=== PATIENT | female | born 1935 | race Asian ===

== ENCOUNTER 2020-03-18 10:26 | Outpatient (CLI) | payer BC, MEDICARE | END 2020-03-18 10:27 | disposition critical access hospital (66) | LOC: EMS 10:26 | PROVIDERS: ATTEND Surgery | DX: R40.20 Unspecified coma (principal); K92.0 Hematemesis | CPT/HCPCS: A0425; A0433 ==

== ENCOUNTER 2020-03-18 10:34 | Inpatient (IN) | payer MEDICARE, BC ==
[2020-03-18] MEDS ORDERED: SODIUM CHLORIDE 0.9% 1,000 ML IV STA (10:39)
--- NOTE | 2020-03-18 10:48 | ED Physician Documentation ---
History of Present Illness - Stated complaint Stated Complaint: UNRESPONSIVE - History obtained from History obtained from: EMS - Additonal information Additional information: 84-year-old presents status post found down by son unresponsive with bloody vomitus. He last saw her normal 3 days ago. Patient has history of hypertension but otherwise has been healthy. She has been acting normally prior to his last seeing her. Further history limited by patient acuity. Patient was intubated in the field after receiving CPR by her son. On arrival EMS had a tachycardic pulse with hypotension blood pressure that improved with fluids. Review of Systems Unable to obtain: Intubated PD PAST MEDICAL HISTORY - Present Medications Home Medications: Ambulatory Orders Medication Instructions Recorded Confirmed Home Medications Unobtainable 03/18/20 03/18/20 [HOME MEDICATIONS UNOBTAINABLE] - Allergies Allergies/Adverse Reactions: Allergies Allergy/AdvReac Type Severity Reaction Status Date / Time Unable to Assess Allergy Verified 03/18/20 10:54 PD ED PE NORMAL - Vitals Vital signs reviewed: Yes - General General: Other (Intubated, sedated) - HEENT HEENT: Other (Eyes fixed and dilated. Bilateral raccoon eyes. Dried blood in the oropharynx) - Neck Neck: Other (No deformity) - Cardiac Cardiac: Other (Tachycardic rate, regular rhythm) - Respiratory Respiratory: Other (Bilateral breath sounds) - Abdomen Abdomen: Non distended - Female Female : Deferred - Rectal Rectal: Deferred - Back Back: Other (No gross deformity) - Derm Derm: Normal color, Other (Positive sebastian sign. Positive raccoon eyes) - Extremities Extremities: No deformity - Neuro Neuro: Other (Intubated, sedated) - Psych Psych: Other (Intubated, sedated) Results - Vitals Vitals: Vital Signs - 24 hr 03/18/20 03/18/20 03/18/20 10:32 10:35 10:40 Temperature 32.4 C L 32.3 C L Heart Rate 94 98 97 Respiratory 16 20 13 Rate Blood Pressure 164/112 H 179/88 H O2 Saturation 100 98 99 03/18/20 03/18/20 03/18/20 10:45 10:50 10:55 Temperature Heart Rate 94 94 93 Respiratory 14 22 19 Rate Blood Pressure 166/99 H 169/99 H 159/95 H O2 Saturation 99 92 87 L 12/03/18/20 03/18/20 11:05 11:10 11:15 Temperature 32 C L Heart Rate 92 93 105 H Respiratory 14 12 12 Rate Blood Pressure 165/110 H 156/93 H O2 Saturation 100 100 156 H 03/18/20 03/18/20 03/18/20 11:20 11:30 11:45 Temperature Heart Rate 106 H 87 93 Respiratory 12 13 12 Rate Blood Pressure 158/100 H 136/79 H 141/79 H O2 Saturation 100 100 95 03/18/20 03/18/20 03/18/20 12:00 12:15 12:30 Temperature Heart Rate 95 94 93 Respiratory 12 12 12 Rate Blood Pressure 148/92 H 130/83 H 136/89 H O2 Saturation 100 88 L 96 Oxygen O2 Source Mechanical ventilator - EKG (time done) 1038 Rate: Rate (enter#) (86) Rhythm: NSR [place]: Normal Intervals: Normal [place] QRS: Normal Ischemia: Normal ST segments Other comments: Other comments (long qt/qtc 425/509) - Labs Labs: Laboratory Tests 03/18/20 03/18/20 03/18/20 10:42 10:42 10:42 WBC 7.3 RBC 4.66 Hgb 14.0 Hct 42.6 MCV 91.4 MCH 30.0 MCHC 32.9 RDW 13.3 Plt Count 160 MPV 9.8 Neut # (Auto) Not Reportable Lymph # (Auto) Not Reportable [place] # (Auto) Not Reportable Eos # (Auto) Not Reportable Baso # (Auto) Not Reportable Absolute Nucleated RBC Not Reportable Total Counted 100 Band Neuts % (Manual) 23 H Reactive Lymphs % (Man) 2 Abnorm Lymph % (Manual) 0 Metamyelocytes % 2 H Nucleated RBC % Not Reportable Neutrophils # (Manual) 3.9 Lymphocytes # (Manual) 2.3 Monocytes # (Manual) 1.0 Eosinophils # (Manual) 0.0 Basophils # (Manual) 0.0 Differential Comment MANUAL DIFFERENTIAL Manual Slide Review Indicated WBC Morphology NORMAL APPEARANCE Platelet Estimate NORMAL (130-450,000) Platelet Morphology NORMAL APPEARANCE RBC Morph Micro Appear NORMAL APPEARANCE PT 13.9 H INR 1.3 H APTT 27.4 Sodium 139 Potassium 3.7 Chloride 105 Carbon Dioxide 19 L Anion Gap 15.0 H BUN 29 H Creatinine 1.1 H Estimated GFR (MDRD) 47 L Glucose 182 H Lactic Acid Calcium 9.0 Magnesium 2.4 Total Bilirubin 0.5 AST 77 H ALT 32 Alkaline Phosphatase 73 Troponin I High Sens Total Protein 6.6 L Albumin 3.4 Globulin 3.2 Albumin/Globulin Ratio 1.1 Lipase 24 Urine Color Urine Clarity Urine pH Ur Specific [place] Urine Protein Urine Glucose (UA) Urine Ketones Urine Occult Blood Urine Nitrite Urine Bilirubin Urine Urobilinogen Ur Leukocyte Esterase Ur Microscopic Review Urine Culture Comments Nasal Adenovirus (PCR) Nasal B. parapertussis DNA (PCR) Nasal Coronavir 229E PCR Nasal Coronavir HKU1 PCR Nasal Coronavir NL63 PCR Nasal Coronavir OC43 PCR Nasal Enterovir/Rhinovir PCR Nasal Influenza B PCR Nasal Influenza A PCR Nasal Parainfluen 1 PCR Nasal Parainfluen 2 PCR Nasal Parainfluen 3 PCR Nasal Parainfluen 4 PCR Nasal RSV (PCR) Nasal B.pertussis DNA PCR Nasal C.pneumoniae (PCR) Rickie Human Metapneumo PCR Nasal M.pneumoniae (PCR) Nasal SARS-CoV-2 (PCR) Urine Opiates Screen Ur Oxycodone Screen Urine Methadone Screen Ur Propoxyphene Screen Ur Barbiturates Screen Ur Tricyclics Screen Ur Phencyclidine Scrn Ur Amphetamine Screen U Methamphetamines Scrn U Benzodiazepines Scrn Urine Cocaine Screen U Cannabinoids Screen Ethyl Alcohol < 5.0 Blood Type Antibody Screen 03/18/20 03/18/20 03/18/20 10:42 10:45 10:45 WBC RBC Hgb Hct MCV MCH MCHC RDW Plt Count MPV Neut # (Auto) Lymph # (Auto) [place] # (Auto) Eos # (Auto) Baso # (Auto) Absolute Nucleated RBC Total Counted Band Neuts % (Manual) Reactive Lymphs % (Man) Abnorm Lymph % (Manual) Metamyelocytes % Nucleated RBC % Neutrophils # (Manual) Lymphocytes # (Manual) Monocytes # (Manual) Eosinophils # (Manual) Basophils # (Manual) Differential Comment Manual Slide Review WBC Morphology Platelet Estimate Platelet Morphology RBC Morph Micro Appear PT INR APTT Sodium Potassium Chloride Carbon Dioxide Anion Gap BUN Creatinine Estimated GFR (MDRD) Glucose Lactic Acid Calcium Magnesium Total Bilirubin AST ALT Alkaline Phosphatase Troponin I High Sens 1455.6 H* Total Protein Albumin Globulin Albumin/Globulin Ratio Lipase Urine Color YELLOW Urine Clarity CLEAR Urine pH 6.0 Ur Specific [place] 1.025 Urine Protein TRACE Urine Glucose (UA) 500 H Urine Ketones 15 H Urine Occult Blood TRACE-INTA Urine Nitrite NEGATIVE Urine Bilirubin NEGATIVE Urine Urobilinogen 0.2 (NORMAL) Ur Leukocyte Esterase NEGATIVE Ur Microscopic Review NOT INDICATED Urine Culture Comments NOT INDICATED Nasal Adenovirus (PCR) Nasal B. parapertussis DNA (PCR) Nasal Coronavir 229E PCR Nasal Coronavir HKU1 PCR Nasal Coronavir NL63 PCR Nasal Coronavir OC43 PCR Nasal Enterovir/Rhinovir PCR Nasal Influenza B PCR Nasal Influenza A PCR Nasal Parainfluen 1 PCR Nasal Parainfluen 2 PCR Nasal Parainfluen 3 PCR Nasal Parainfluen 4 PCR Nasal RSV (PCR) Nasal B.pertussis DNA PCR Nasal C.pneumoniae (PCR) Rickie Human Metapneumo PCR Nasal M.pneumoniae (PCR) Nasal SARS-CoV-2 (PCR) Urine Opiates Screen NEGATIVE Ur Oxycodone Screen NEGATIVE Urine Methadone Screen NEGATIVE Ur Propoxyphene Screen NEGATIVE Ur Barbiturates Screen NEGATIVE Ur Tricyclics Screen NEGATIVE Ur Phencyclidine Scrn NEGATIVE Ur Amphetamine Screen NEGATIVE U Methamphetamines Scrn NEGATIVE U Benzodiazepines Scrn NEGATIVE Urine Cocaine Screen NEGATIVE U Cannabinoids Screen NEGATIVE Ethyl Alcohol Blood Type A POSITIVE Antibody Screen NEGATIVE 03/18/20 03/18/20 11:03 11:18 WBC RBC Hgb Hct MCV MCH MCHC RDW Plt Count MPV Neut # (Auto) Lymph # (Auto) [place] # (Auto) Eos # (Auto) Baso # (Auto) Absolute Nucleated RBC Total Counted Band Neuts % (Manual) Reactive Lymphs % (Man) Abnorm Lymph % (Manual) Metamyelocytes % Nucleated RBC % Neutrophils # (Manual) Lymphocytes # (Manual) Monocytes # (Manual) Eosinophils # (Manual) Basophils # (Manual) Differential Comment Manual Slide Review WBC Morphology Platelet Estimate Platelet Morphology RBC Morph Micro Appear PT INR APTT Sodium Potassium Chloride Carbon Dioxide Anion Gap BUN Creatinine Estimated GFR (MDRD) Glucose Lactic Acid 5.0 H* Calcium Magnesium Total Bilirubin AST ALT Alkaline Phosphatase Troponin I High Sens Total Protein Albumin Globulin Albumin/Globulin Ratio Lipase Urine Color Urine Clarity Urine pH Ur Specific [place] Urine Protein Urine Glucose (UA) Urine Ketones Urine Occult Blood Urine Nitrite Urine Bilirubin Urine Urobilinogen Ur Leukocyte Esterase Ur Microscopic Review Urine Culture Comments Nasal Adenovirus (PCR) NOT DETECTED Nasal B. parapertussis DNA (PCR) NOT DETECTED Nasal Coronavir 229E PCR NOT DETECTED Nasal Coronavir HKU1 PCR NOT DETECTED Nasal Coronavir NL63 PCR NOT DETECTED Nasal Coronavir OC43 PCR NOT DETECTED Nasal Enterovir/Rhinovir PCR NOT DETECTED Nasal Influenza B PCR NOT DETECTED Nasal Influenza A PCR NOT DETECTED Nasal Parainfluen 1 PCR NOT DETECTED Nasal Parainfluen 2 PCR NOT DETECTED Nasal Parainfluen 3 PCR NOT DETECTED Nasal Parainfluen 4 PCR NOT DETECTED Nasal RSV (PCR) NOT DETECTED Nasal B.pertussis DNA PCR NOT DETECTED Nasal C.pneumoniae (PCR) NOT DETECTED Rickie Human Metapneumo PCR NOT DETECTED Nasal M.pneumoniae (PCR) NOT DETECTED Nasal SARS-CoV-2 (PCR) NOT DETECTED Urine Opiates Screen Ur Oxycodone Screen Urine Methadone Screen Ur Propoxyphene Screen Ur Barbiturates Screen Ur Tricyclics Screen Ur Phencyclidine Scrn Ur Amphetamine Screen U Methamphetamines Scrn U Benzodiazepines Scrn Urine Cocaine Screen U Cannabinoids Screen Ethyl Alcohol Blood Type Antibody Screen PD MEDICAL DECISION MAKING - ED course ED course: patient unresponsive on arrival with report by ems that she had no meaningful activity prior to intubation. eyes fixed and dilated on initial evaluation. no gag reflex. 11:30am d/w radiologist Dr. El - patient is not currently herniating but does have extensive IPH,SAH, SDH, and IVH in 4th ventricles. temp 31 at present. patient under bearhugger. will d/w family re goals of care. 11:45am - d/w son who states she wouldn't want any extraordinary measures, he is agreeable to comfort measures only, stating that she would not wish to prolong her life artificially. dw Dr. Torres, hospitalist who will admit to floor. patient to be extubated pending discussion with family. Departure - Departure Disposition: 66 [facility] DC/Xfer Clinical Impression: Intraparenchymal hematoma of brain, SDH (subdural hematoma), Respiratory failure, IVH (intraventricular hemorrhage), Subarachnoid bleed, Pneumothorax on right, Unresponsiveness Hypothermia Qualifiers: Encounter type: initial encounter Qualified Code(s): T68.XXXA - Hypothermia, initial encounter Discharge Date/Time: 03/18/20 13:07
[2020-03-18 10:59] LABS: MUDS CUTOFF CONCENTRATIONS CUTOFF CONC BELOW:
[2020-03-18 11:00] LABS: BASOPHILS % (AUTO) 0.5 %; EOSINOPHILS % (AUTO) 24.5 %; LYMPHOCYTES % (AUTO) 12.3 %; MEAN CORPUSCULAR HGB CONC 32.9 g/dL (32.0-36.0); MEAN CORPUSCULAR VOLUME 91.4 fL (81.0-99.0); MEAN PLATELET VOLUME 9.8 fL (7.9-10.8); MONOCYTES % (AUTO) 9.9 %; NEUTROPHILS % (AUTO) 51.8 %; PLT - PLATELET COUNT 160 10^3/uL (130-450); RED BLOOD COUNT 4.66 10^6/uL (4.20-5.40); RED CELL DISTRIBUTION WIDTH 13.3 % (12.0-15.0); WHITE BLOOD COUNT 7.3 x10^3/uL (4.8-10.8)
[2020-03-18 11:03] LABS: INR 1.3 (0.8-1.2); PT - PROTHROMBIN TIME 13.9 secs (9.9-12.6)
[2020-03-18 11:05] LABS: BILIRUBIN,URINE NEGATIVE (NEGATIVE); GLUCOSE, URINE (UA) 500 mg/dL (NEGATIVE); KETONES,URINE (UA) 15 mg/dL (NEGATIVE); LEUKOCYTE ESTERASE, URINE NEGATIVE (NEGATIVE); NITRITE,URINE NEGATIVE (NEGATIVE); OCCULT BLOOD,URINE TRACE-INTA (NEGATIVE); PROTEIN,URINE TRACE mg/dL (NEGATIVE); UROBILINOGEN,URINE 0.2 (NORMAL) E.U./dL (NORMAL)
[2020-03-18] MEDS ORDERED: IOVERSOL 320 100 ML VIAL IVP ONE ×2 (11:05→11:37)
[2020-03-18 11:06] LABS: CLARITY,URINE CLEAR (CLEAR)
--- NOTE | 2020-03-18 11:09 | XRAY Report ---
PROCEDURE: Post ET Tube 1V CXR INDICATIONS: et tube placement TECHNIQUE: One view of the chest was acquired. COMPARISON: None FINDINGS: Surgical changes and devices: Endotracheal tube is present approximately 3.5 cm superior to the madelin a. Nasogastric tube is present with distal tip projecting over the gastroesophageal junction.. Lungs and pleura: No pleural effusions or pneumothorax. Lungs are clear. Mediastinum: Mediastinal contours appear normal. Heart size is enlarged. Bones and chest wall: No suspicious bony lesions. Overlying soft tissues appear unremarkable. IMPRESSION: 1. Endotracheal tube as above. 2. Nasogastric tube projecting over the gastroesophageal junction. For advancement is recommended. Reviewed by: Deena Crabtree MD on 03/18/2020 11:07 AM [facility] Approved by: Deena Crabtree MD on 03/18/2020 11:07 AM [facility] Station ID: [id number]
[2020-03-18 11:10] LABS: PARTIAL THROMBOPLASTIN TIME 27.4 secs (24.9-33.3)
[2020-03-18 11:12] LABS: ALBUMIN 3.4 g/dL (3.2-5.5); ALBUMIN/GLOBULIN RATIO 1.1 (1.0-2.2); ALKALINE PHOSPHATASE 73 IU/L (42-121); ALT ALANINE AMINOTRANSFERASE 32 IU/L (10-60); AST ASPARTATE AMINOTRANSFERASE 77 IU/L (10-42); BILIRUBIN,TOTAL 0.5 mg/dL (0.2-1.0); BUN - BLOOD UREA NITROGEN 29 mg/dL (6-20); CARBON DIOXIDE - CO2 19 mmol/L (21-32); CHLORIDE 105 mmol/L (101-111); CREATININE 1.1 mg/dL (0.4-1.0); GLUCOSE 182 mg/dL (70-100); LIPASE 24 U/L (22-51); MAGNESIUM 2.4 mg/dL (1.7-2.8); SODIUM 139 mmol/L (135-145); TOTAL PROTEIN 6.6 g/dL (6.7-8.2)
[2020-03-18 11:16] LABS: COCAINE SCREEN URINE NEGATIVE (NEGATIVE)
[2020-03-18 11:17] LABS: AMPHETAMINE SCREEN,URINE NEGATIVE (NEGATIVE); BENZODIAZEPINES SCREEN, URINE NEGATIVE (NEGATIVE); METHADONE SCREEN, URINE NEGATIVE (NEGATIVE); METHAMPHETAMINES SCREEN, URINE NEGATIVE (NEGATIVE); OPIATE SCREEN, URINE NEGATIVE (NEGATIVE); OXYCODONE SCREEN, URINE NEGATIVE (NEGATIVE); PROPOXYPHENE SCREEN, URINE NEGATIVE (NEGATIVE); TRICYCLIC ANTIDEPRESSANT,URINE NEGATIVE (NEGATIVE)
[2020-03-18 11:28] LABS: ABNORMAL LYMPHS % (MANUAL) 0 %
--- NOTE | 2020-03-18 11:35 | CT Report ---
PROCEDURE: HEAD WO INDICATIONS: Head trauma, coagulopathy TECHNIQUE: Noncontrast 4.5 mm thick angled axial sections acquired from the foramen magnum to the vertex. For r adiation dose reduction, the following was used: automated exposure control, adjustment of mA and/or kV according to patient size. COMPARISON: None. FINDINGS: Image quality: Excellent. There is extensive bifrontal areas of hyperdensity with fluid levels. In addition, bilateral frontal subdural as well as bilateral areas of subarachnoid hemorrhage are identified. Greatest transverse di mension of the subdural fluid measures 6 mm. There is prominent hemorrhage within the lateral and fou rth ventricles. Hemorrhage appears to extend from the fourth ventricle along the posterior aspect of the brainstem to the level of the foramen magnum. There is effacement of the frontal horns of the lat eral ventricle secondary to hemorrhage. Secondary to significant bifrontal hemorrhage, there is limit ed discernment for midline shift. However, there is narrowing of the basal cisterns. Brainstem is unr emarkable. Globes are symmetrical. There are extensive fluid levels within the right maxillary and sphenoid sinu ses. There is suspicion for a superior right orbital fracture, nondisplaced. In addition, nondisplace d fracture through the right sphenoid is noted. Nondisplaced posterior occipital fracture is present. There are scattered areas of fluid within the mastoid air cells, right greater than left. Posterior parieto-occipital hematomas are present. IMPRESSION: 1. Extensive parenchymal, subdural and subarachnoid hemorrhage as above. There is narrowing of the ba huan cisterns and hemorrhage is noted extending inferior to level the fourth ventricle adjacent to the cervical cord extending to the level the foramen magnum. There is narrowing of the basal cisterns. 2. Nondisplaced occipital fracture. In addition, there appears to be a nondisplaced fracture to the r ight sphenoid as well as occipital fracture and questionable right orbital fracture. Given overall ap pearance, areas of skull base and facial fractures cannot be excluded. If these areas are of concern, facial bone series as well as temporal bone CT is recommended for further evaluation. The above findings were discussed with on 03/18/20 at 11:20am. Reviewed by: Deena Crabtree MD on 03/18/2020 11:34 AM PST Approved by: Deena Crabtree MD on 03/18/2020 11:34 AM PST Station ID: [id number]
[2020-03-18 11:41] LABS: BAND NEUTROPHILS % (MANUAL) 23 %; LYMPHOCYTES # (MANUAL) 2.3 10^3/uL (1.5-3.5); LYMPHOCYTES % (MANUAL) 29 %; METAMYELOCYTES % (MANUAL) 2 %
--- NOTE | 2020-03-18 11:43 | CT Report ---
PROCEDURE: Abdomen/Pelvis W INDICATIONS: Abdominal trauma, blunt CONTRAST: IV CONTRAST: Optiray 320 ml: 100 PO CONTRAST: *NO PO CONTRAST TECHNIQUE: After the administration of intravenous contrast, 5 mm thick sections acquired from the diaphragms to the symphysis. 5 mm thick coronal and sagittal reformats were acquired. For radiation dose reducti on, the following was used: automated exposure control, adjustment of mA and/or kV according to lisa ent size. COMPARISON: CT chest 03/18/2020 FINDINGS: Image quality: Excellent. ABDOMEN: Lung bases: Dependent changes are present within the bases particularly the left. Heart size is enlar ged. Solid organs: Liver is enlarged with steatosis. Spleen is unremarkable.. Gallbladder is unremarkabl e Biliary system is non dilated. Pancreas enhances normally. No adrenal nodules. Kidneys demonstr ate normal size and enhancement, without hydronephrosis. Peritoneum and bowel: Bowel loops demonstrate normal wall thickness and caliber. No free fluid or a ir. Moderate stool is present. Colonic diverticula are noted without change. Nodes and vessels: No retroperitoneal or mesenteric adenopathy by size criteria. Aorta and inferior vena cava are normal in size. Miscellaneous: No ventral hernias. Nasogastric tube is noted to be abutted at the left lateral wall of the stomach. PELVIS: Genitourinary: Bladder wall thickness is normal. Miscellaneous: No inguinal hernias or adenopathy. Bones: Left lateral seventh rib deformity, appearing chronic. No vertebral body compression fractures . IMPRESSION: 1. Mild hepatic megaly steatosis. 2. Diverticulosis. 3. No definitive traumatic osseous or visceral injury. Reviewed by: Deena Crabtree MD on 03/18/2020 11:42 AM [facility] Approved by: Deena Crabtree MD on 03/18/2020 11:42 AM PST Station ID: [id number]
[2020-03-18 11:44] LABS: DIFFERENTIAL COMMENT MANUAL DIFFERENTIAL; PLATELET ESTIMATE, MANUAL NORMAL (130-450,000) (NORMAL); PLATELET MORPHOLOGY NORMAL APPEARANCE (NORMAL); RBC MORPHOLOGY (MULTIPLE) NORMAL APPEARANCE (NORMAL)
[2020-03-18 12:00] LABS: C. PNEUMONIAE- RESP PCR PANEL NOT DETECTED
--- NOTE | 2020-03-18 12:00 | CT Report ---
PROCEDURE: CHEST W INDICATIONS: Chest trauma, penetrating CONTRAST: IV CONTRAST: Optiray 320 ml: 100 PO CONTRAST: *NO PO CONTRAST TECHNIQUE: After the administration of intravenous contrast, 5 mm thick sections acquired from the pulmonary api sherita to the posterior costophrenic angles. 7 mm thick coronal MIP reformats were acquired. For radia tion dose reduction, the following was used: automated exposure control, adjustment of mA and/or kV according to patient size. COMPARISON: None. FINDINGS: Image quality: Excellent. Lungs and pleura: There are scattered areas of patchy opacity within the lungs predominantly on the l eft. There is a trace right pneumothorax. Central and peripheral airways are patent and normal in lilliana iber. Mediastinum: Heart size is enlarged. No pericardial effusion. No mediastinal or hilar adenopathy by size criteria. Thoracic aorta measures 3.9 cm in the ascending portion. The main pulmonary artery i s enlarged measuring 3.7 cm.. Esophagus is normal in caliber. No hiatal hernia. Endotracheal and n asogastric tube are present. Bones and chest wall: No suspicious bony lesions. Left lateral seventh rib deformity is present, elliott earing chronic. There is a displaced right lateral third, fourth, fifth and appearance of nondisplace d sixth rib fractures. No vertebral body compression fractures. No axillary or supraclavicular adeno kye by size criteria. Thyroid gland is unremarkable. Abdomen: Visualized upper abdominal solid organs appear normal. Upper abdominal bowel loops are nor mal in caliber. IMPRESSION: 1. Trace right pneumothorax with multiple right-sided rib fractures. 2. Patchy areas of opacity are noted within the lungs bilaterally however predominantly on the left. These may represent areas of contusion, atelectasis. Areas of developing pneumonia cannot be definiti vely excluded. The above findings were discussed with Dr. Lowe on 03/18/2020 at 11:56 AM. Reviewed by: Deena Crabtree MD on 03/18/2020 11:58 AM [facility] Approved by: Deena Crabtree MD on 03/18/2020 11:58 AM PST Station ID: [id number]
--- NOTE | 2020-03-18 12:06 | CT Report ---
PROCEDURE: CERVICAL SPINE WO INDICATIONS: Neck trauma, midline tenderness TECHNIQUE: Noncontrast 3 mm thick sections acquired from the skull base to the T4 level. Sagittal and coronal r eformats were then constructed. For radiation dose reduction, the following was used: automated exp osure control, adjustment of mA and/or kV according to patient size. COMPARISON: CT head 03/18/2020. FINDINGS: Image quality: Excellent. Bones: No cervical spine fractures or dislocations. Displaced, nondepressed occipital bone fracture is stable where visualized compared to prior CT scan of the head. Visualized superior ribs are intact . Spine degenerative disc disease and facet arthropathy are noted. Soft tissues: Intracranial hemorrhage is identified visualized brain which is stable and visualized compared to prior CT scan of the head. Prevertebral soft tissues are normal in thickness. No paraver tebral hematomas. No apical pneumothoraces. Bronchiectasis noted in the lung apices. Interstitial th ickening of the lung apices concerning for pulmonary edema. ET and OG tubes noted. IMPRESSION: 1. No cervical spine fracture. No acute cervical spine osseous lesion. If there is continued clinical concern for pathology, then MRI should be considered for further evaluation. 2. Intracranial hemorrhage and nondisplaced/nondepressed occipital bone fracture stable visualize com pared to prior CT scan of the head. 3. Biapical lung interstitial thickening concerning for pulmonary edema. Reviewed by: Caitie Nassar MD, PhD on 03/18/2020 12:05 PM PST Approved by: Caitie Nassar MD, PhD on 03/18/2020 12:05 PM [facility] Station ID: [id number]
[2020-03-18] MEDS ORDERED: SODIUM CHLORIDE FLUSH 0.9% 10 ML SYRINGE IVP PRN (12:18)
[2020-03-18] MEDS ORDERED: MORPHINE 2 MG/ML CARPUJECT IVP PRN (12:18)
--- NOTE | 2020-03-18 12:20 | HISTORY & PHYSICAL EXAMINATION ---
Chief Complaint - Chief Complaint Chief Complaint: Found down at home History of Present Illness - Admitted From Admitted From:: Home - History Obtained From Records Reviewed: Yes History obtained from: ER Physician, Son, EMR Exam Limitations: Patient is intubated and unable to provide a history. - History of Present Illness HPI Comment/Other: This is a 84-year-old female with a past medical history significant for hyperte nsion who presents today after being found down at home. History is obtained from the ER physician and the patient's son. The son tells me that his mother lives alone on a farm and is independent. She is a history of hypertension but does not take any medications for it. She is not on any blood thinners. She is normally active and takes care of her 3 horses. He states that he called her yesterday but she did not answer the phone. This was not unusual as she can be out on the farm with her horses and will not check her voicemail. He went to go see her this morning and noticed that the horses were loose which is unusual. He went into the house and found his mother lying down with blood all over her face. He immediately called EMS. He states that he last saw his mother about 3 days ago. Here in the emergency department, she was found to have extensive parenchymal, subdural and subarachnoid hemorrhage. She also had a hemorrhage extending to the fourth ventricle. There was also concern for nondisplaced occipital fracture as well as a possible right orbital fracture. CT of the chest showed trace right pneumothorax with multiple right-sided rib fractures. CT of the cervical spine showed no fracture. These findings were discussed with the patient's son who felt the patient would not want surgical intervention. Given this, she will be admitted here to the intensive care unit. The patient's son would like to await the arrival of his sister who should be here in 2 hours before extubating the patient and transition her to comfort measures. History - Past Medical History Cardiovascular: reports: Hypertension - Family & Social History Family History Comment/Other: This was not obtained given it would not slubber frame changer. Living arrangement: At home Living Situation: Alone Social History Notes: She lives at home alone. She is a retired or nurse. She worked here at [employer] and retired in the late . She was a non-smoker Meds/Allgy - Home Medications Home Medications: Ambulatory Orders Medication Instructions Recorded Confirmed Home Medications Unobtainable 03/18/20 03/18/20 [HOME MEDICATIONS UNOBTAINABLE] - Allergies Allergies/Adverse Reactions: Allergies Allergy/AdvReac Type Severity Reaction Status Date / Time Unable to Assess Allergy Verified 03/18/20 10:54 Review of Systems - All Other Systems All Other Systems: reports: Other (Unable to obtain as she is intubated.) Prior Level of Functionality: She was independent with ADLs and living alone. Exam - Vital Signs Vital Signs: Vital Signs x48h Temp Pulse Resp BP Pulse Ox 03/18/20 11:10 93 12 100 03/18/20 11:05 32 C L 92 14 165/110 H 100 03/18/20 10:55 93 19 159/95 H 87 L 03/18/20 10:50 94 22 169/99 H 92 03/18/20 10:45 94 14 166/99 H 99 03/18/20 10:40 32.3 C L 97 13 99 03/18/20 10:35 98 20 179/88 H 98 03/18/20 10:32 32.4 C L 94 16 164/112 H 100 - Physical Exam General Appearance: positive: Other (She is intubated. She is not responding to commands. She is not on sedation) Eyes Bilateral: positive: Other (Conjunctival hemorrhage noted bilaterally. Right orbital ecchymosis noted. Pupils are constricted and sluggish.) ENT: positive: Other (ET tube is in place.) Respiratory: positive: No respiratory distress, Other (Coarse breath sounds bilaterally.) Cardiovascular: positive: Extrasystoles, Tachycardia. negative: Systolic murmur Abdomen: positive: Non-tender, No distention Skin: positive: Warm, Dry, Other (Ecchymosis of the right orbit as mentioned above.) Extremities: positive: No pedal edema Neurologic/Psychiatric: positive: Other (She is not following commands off of sedation. No spontaneous movements.) Conclusion/Plan - Problem List (1) Intracranial hemorrhage Conclusion/Plan: She has extensive parenchymal, subdural and subarachnoid hemorrhage With extension to the fourth ventricle. This unfortunately appears to be catastrophic and family has decided to pursue comfort measures once the patient's daughter arrives from [place]. We will admit her to the ICU and keep her on a ventilator until the daughter arrives. We will continue with supporti ve measures for the time being. Continue with vent management as per protocol. Her blood pressure less than 140 systolic so we will not start her on Cardene. Once the family spends time with the patient, we will look to extubate her. Morphine IV as needed. (2) Hypothermia Conclusion/Plan: This is secondary to the intracranial hemorrhage. We will hold off on actively rewarming her given family will be pursuing comfort measures later today. Qualifiers: Encounter type: initial encounter Qualified Code(s): T68.XXXA - Hypothermia, initial encounter (3) Multiple fractures of ribs of right side Conclusion/Plan: This is likely secondary to trauma. We will treat her pain with morphine IV as needed. Qualifiers: Encounter type: initial encounter (4) Pneumothorax on right Conclusion/Plan: Secondary to right rib fractures. Given the plan is for comfort measures later today, we will not be placing a chest tube. - Lab Results Lab results reviewed: Yes Fish Bones: 03/18/20 10:42 03/18/20 10:42 - Diagnostic Imaging Results Diagnostic Imaging Results: positive: Final report reviewed Core Measures - Anticipated LOS I expect patient to be DC'd or transferred within 96 hours.: Yes - Issues Hospital Issues and Management Plan: 84-year-old female found down at home and has significant intracranial hemorrhage. Plan is to admit for comfort measures once the daughter arrives. - DVT/VTE - Prophylaxis VTE/DVT Device ordered at admit?: No VTE/DVT Prophylaxis med ordered at admit?: No
--- NOTE | 2020-03-18 12:21 | CT Report ---
PROCEDURE: MAXILLOFACIAL WO INDICATIONS: Facial trauma TECHNIQUE: Noncontrast 1.5 mm thick axial images acquired from the mandible through the frontal sinuses, with co tucker and sagittal reformatting. For radiation dose reduction, the following was used: automated ex posure control, adjustment of mA and/or kV according to patient size. COMPARISON: CT head 03/18/2020.. FINDINGS: Image quality: Excellent. Bones and teeth: Fracture of the superior right orbital wall is noted. Extraconal, retrobulbar hemorr nunu is noted in the right orbit adjacent to right superior orbital wall fracture. Nondisplaced fract ure of the right lateral maxillary sinus wall. Nasal bones and septum are intact. Visualized portion s of the mandible demonstrate no fractures or subluxation. Zygomatic arches are intact. Pterygoid p lates are intact. Right skull base fracture is noted which extends through the greater sphenoid wing, the sphenoid body and the right petrous apex. Fracture lucency extends across the right internal aud itory canal and the right carotid canal. Scattered fluid noted in the left mastoid air cells and air- fluid level noted in the left middle ear concerning for occult left temporal bone fracture. There is a nondisplaced, nondepressed fracture of the midline of the visualized occipital bone which extends i nto the foramen magnum and through the right lateral and posterior margin of the right occipital cond yle. Sinuses: Intrasinus hemorrhage noted in the maxillary sinuses, sphenoid sinuses and scattered through out the ethmoid air cells. Mastoid air cells are aerated. Soft tissues: No edema, masses, or fluid collections. No enlarged lymph nodes. No soft tissue lace rations or debris. ET and OG tubes present. Stents of intracranial hemorrhage is noted which is not s ignificantly changed compared to CT scan of the head. Vascular: Visualized vascular structures appear normal in the absence of contrast. Bony vascular fo ramina and canals are intact. IMPRESSION: 1. Right superior orbital wall fracture. 2. Right skull base fracture involving the greater sphenoid wing, sphenoid body and the petrous apex. 3. Right skull base fracture extends through the right internal carotid artery canal. Recommend CT an giogram of the head and neck to exclude internal carotid artery injury. 4. Nondisplaced fracture of the right maxillary sinus lateral wall. 5. Occipital bone fracture which extends to the posterior-lateral margin of the right occipital condy le and the foramen magnum. 6. Fluid in the left middle ear and scattered throughout the left mastoid air cells concerning for oc cult left temporal bone fracture. Reviewed by: Caitie Nassar MD, PhD on 03/18/2020 12:20 PM PST Approved by: Caitie Nassar MD, PhD on 03/18/2020 12:20 PM PST Station ID: [id number]
[2020-03-18 16:05] VITALS: BP 99/76
--- NOTE | 2020-03-18 16:48 | Discharge Plan ---
Discharge Plan Problem Reviewed?: Yes Disposition: 20 No Smoking: If you smoke, Please STOP! Call for help.
--- NOTE | 2020-03-18 16:49 | DISCHARGE SUMMARY ---
Discharge Summary Admit Date: 03/18/20 Discharge Date: 03/18/20 Discharging Provider: Fito Bean Code Status: Do Not Attempt Resuscitation Discharge Disposition: 20 - DIAGNOSES Admission Diagnoses: Intracranial hemorrhage Hypothermia Multiple fractures of ribs of right side Pneumothorax and right Discharge Diagnoses with Status of Each Condition: Intracranial hemorrhage Hypothermia Multiple fractures of ribs of right side Pneumothorax and right - HPI History of Present Illness: This is a 84-year-old female with a past medical history significant for hypertension who presents today after being found down at home. History is obtained from the ER physician and the patient's son. The son tells me that his mother lives alone on a farm and is independent. She is a history of hypertension but does not take any medications for it. She is not on any blood thinners. She is normally active and takes care of her 3 horses. He states that he called her yesterday but she did not answer the phone. This was not unusual as she can be out on the farm with her horses and will not check her voicemail. He went to go see her this morning and noticed that the horses were loose which is unusual. He went into the house and found his mother lying down with blood all over her face. He immediately called EMS. He states that he l ast saw his mother about 3 days ago. Here in the emergency department, she was found to have extensive parenchymal, subdural and subarachnoid hemorrhage. She also had a hemorrhage extending to the fourth ventricle. There was also concern for nondisplaced occipital fracture as well as a possible right orbital fracture. CT of the chest showed trace right pneumothorax with multiple right-sided rib fractures. CT of the cervical spine showed no fracture. These findings were discussed with the matthew malloy's son who felt the patient would not want surgical intervention. Given this, she will be admitted here to the intensive care unit. The patient's son would like to await the arrival of his sister who should be here in 2 hours before extubating the patient and transition her to comfort measures. - HOSPITAL COURSE Hospital Course: She was admitted to the intensive care unit given her significant intracranial hemorrhage. We did speak with the family in the emergency department and they want to continue supportive measures for the time being until the patient's daughter can arrive from [place]. She was admitted to intensive care unit and she remained on a ventilator. We started her on morphine IV as needed. General surgery was not consulted for chest tube placement given the family was going to consider comfort measures later today. The daughter did arrive 2 hours after admission. After speaking with her and the patient's son, they decided to pursue comfort measures. The patient was then extubated and she shortly after at 1635. Both the patient's son and daughter were present at bedside. - ALLERGIES Allergies/Adverse Reactions: Allergies Allergy/AdvReac Type Severity Reaction Status Date / Time Unable to Assess Allergy Verified 03/18/20 10:54 - MEDICATIONS Home Medications: Ambulatory Orders Medication Instructions Recorded Confirmed Home Medications Unobtainable 03/18/20 03/18/20 [HOME MEDICATIONS UNOBTAINABLE] - PHYSICAL EXAM AT DISCHARGE Eyes Bilateral: positive: Other (Pupils are fixed and dilated. Bilateral conjunctival hemorrhage. Bilateral periorbital ecchymosis.) Respiratory: positive: Other (No spontaneous respirations) Cardiovascular: positive: Other (No heart sounds present.) Peripheral Pulses: positive: 0 - LABS Result Diagrams: 03/18/20 10:42 03/18/20 10:42 - DIAGNOSTIC IMAGING Diagnostic Imaging Results: Final report reviewed
[2020-03-18] MEDS ORDERED: SODIUM CHLORIDE FLUSH 0.9% 10 ML SYRINGE IVP SCH (17:00)
== END 2020-03-18 16:35 | disposition home or self-care (01) | DRG 964 ==
LOC: ED 10:34 → ICU 12:40
PROVIDERS: ADMIT Internal Medicine; ATTEND Internal Medicine
PROC: 5A1935Z Respiratory Ventilation, Less than 24 Consecutive Hours (ICD-10-PCS; principal; 2020-03-18)
DX: S06.2X9A Diffuse traumatic brain injury with loss of consciousness of unspecified duration, initial encounter (principal); S22.41XA Multiple fractures of ribs, right side, initial encounter for closed fracture; S27.0XXA Traumatic pneumothorax, initial encounter; S02.119A Unspecified fracture of occiput, initial encounter for closed fracture; S02.11GA Other fracture of occiput, right side, initial encounter for closed fracture; S02.85XA Fracture of orbit, unspecified, initial encounter for closed fracture; R68.0 Hypothermia, not associated with low environmental temperature; S02.19XA Other fracture of base of skull, initial encounter for closed fracture; X58.XXXA Exposure to other specified factors, initial encounter; Y92.019 Unspecified place in single-family (private) house as the place of occurrence of the external cause; I10 Essential (primary) hypertension; Z51.5 Encounter for palliative care; Z66 Do not resuscitate
CPT/HCPCS: 36415; 43753; 51702; 70450; 70486; 71045; 71260; 72125; 74177; 80053; 81003; 83605; 83690; 83735; 84484; 85025; 85610; 85730; 86850; 86900; 86901; 87631; 93005; 94002; 96360; 96361; 99291; 99292; Q9967; 0202U; 80306; 80320; 81001; 82310; 87086; 94770